=== PATIENT | male | born 1985 | race African-American/Black ===

== ENCOUNTER 2016-10-23 01:45 | Observation (INO) | payer SELFPAY ==
[~2016-10-23] VITALS: Ht 172.7 cm; Wt 71.0 kg
[~2016-10-23 01:45] MED LIST: AMOX500T PO; DICL50 PO
[2016-10-23 01:48] VITALS: BP 149/85; PULSE 66; RESP 16; TEMP 97.8; O2SAT 100
[2016-10-23 04:11] VITALS: BP 113/66; PULSE 52; RESP 17; O2SAT 96
[2016-10-23] MEDS ORDERED: SODIUM CHLORIDE 0.9% FLUSH 10 ML FLUSH IVF PRN (04:15)
[2016-10-23] MEDS ORDERED: ASPIRIN 81 MG CHEW TAB PO ONE (04:15)
--- NOTE | 2016-10-23 05:04 | RADRPT ---
EXAM DATE/TIME: 10/23/2016 04:19 [place] COMPARISON: No previous studies available for comparison. INDICATIONS : Chest pain. MEDICAL HISTORY : Pericarditis. SURGICAL HISTORY : Heart sx. ENCOUNTER: Initial ACUITY: 3 days PAIN SCORE: 5/10 LOCATION: chest FINDINGS: A single view of the chest demonstrates the lungs to be symmetrically aerated without evidence of mas s, infiltrate or effusion. The cardiomediastinal contours are unremarkable. Osseous structures are intact. CONCLUSION: Normal examination. Corbin Paez MD on October 23, 2016 at 5:03 Board Certified Radiologist. This report was verified electronically.
[2016-10-23 05:20] LABS: AUTOMATED NEUTROPHIL # 2.8 TH/MM3 (1.8-7.7); BASOPHIL % 0.3 % (0.0-2.0); EOSINOPHIL # 0.2 TH/MM3 (0-0.4); EOSINOPHIL % 3.4 % (0.0-4.0); HEMO FLAGS DIFF FINAL; LYMPH % 49.4 % (9.0-44.0); LYMPHOCYTE # 3.5 TH/MM3 (1.0-4.8); MEAN CELL VOLUME 88.7 FL (80.0-100.0); MEAN CORPUSCULAR HEMOGLOBIN 30.5 PG (27.0-34.0); MEAN CORPUSCULAR HGB CONC 34.4 % (32.0-36.0); MONO % 6.7 % (0.0-8.0); NEUT % 40.2 % (16.0-70.0); PLATELET COUNT 317 TH/MM3 (150-450); RED BLOOD COUNT 4.51 MIL/MM3 (4.50-5.90); RED CELL DISTRIBUTION WIDTH 13.6 % (11.6-17.2); WHITE BLOOD COUNT 7.1 TH/MM3 (4.0-11.0)
[2016-10-23 05:32] LABS: ALT (GPT) 18 U/L (12-78); ANION GAP 5 MEQ/L (5-15); AST (GOT) 19 U/L (15-37); BICARBONATE 27.2 MEQ/L (21.0-32.0); BLOOD UREA NITROGEN 13 MG/DL (7-18); CHLORIDE 107 MEQ/L (98-107); GLOMERULAR FILTRATION RATE 126 ML/MIN (>89); MAGNESIUM 2.1 MG/DL (1.5-2.5); POTASSIUM 3.8 MEQ/L (3.5-5.1); SODIUM (NA) 139 MEQ/L (136-145)
[2016-10-23 05:36] LABS: ALKALINE PHOSPHATASE 89 U/L (45-117); APTT (PATIENT) 27.8 SEC (24.3-30.1); CREATINE KINASE 243 U/L (39-308); INTERNATIONAL NORMALIZED RATIO 0.9 RATIO; PROTHROMBIN TIME - PATIENT 10.2 SEC (9.8-11.6); TOTAL BILIRUBIN ADULT 0.2 MG/DL (0.2-1.0)
[2016-10-23 05:49] LABS: CKMB 1.2 NG/ML (0.5-3.6)
--- NOTE | 2016-10-23 06:33 | PD ---
HPI Chief Complaint: Respiratory Symptoms Time Seen by Provider: 04:07 Travel History International Travel<30 days: No Contact w/Intl Traveler<30days: No Traveled to known affect area: No History of Present Illness HPI The patient is a 31 year old male who presents to the [facility] emergency department with a history of chest pain that he reports is been ongoing for the last 3 days. He reports that the pain is been constant and gradually getting worse with time. He reports that it is worse with taking a deep breath. He reports that it causes an aching sensation in the left shoulder and left arm. He reports that the pain is a pressure sensation in the left side of his chest. He denies any prior history of coronary artery disease, however he does report at 16 years of age he had pericarditis and had a pericardial window. He was last seen by singer songwriter 5 years ago. The patient denies having any history of hypertension, hyperlipidemia, or diabetes mellitus. He does report smoking a half pack of cigarettes daily. The patient denies any recent fevers, cough, congestion, neck pain, abdominal pain, diarrhea, urinary symptoms, or neurologic symptoms. [facility] Past Medical History Narrative Medical The patient's past medical history is significant for pericarditis with pericardial window at 16 years of age. Cardiovascular Problems: Yes (HX OF PERICARDITIS) Past Surgical History Narrative Surgical The patient has a history of pericardial window at 16 years of age. Social History Alcohol Use: Yes (1X WEEK) Tobacco Use: Yes (1/2 PPD) Substance Use: No Allergies-Medications (Allergen,Severity, Reaction): Coded Allergies: No Known Allergies (Unverified , 10/23/16) Reported Meds & Prescriptions Reported Meds & Active Scripts Active Review of Systems Except as stated in HPI: all other systems reviewed are Neg General / Constitutional: No: Fever Eyes: No: Visual changes HENT: No: Headaches Cardiovascular: Positive: Chest Pain or Discomfort, Dyspnea on exertion, No: Diaphoresis Respiratory: Positive: Shortness of Breath, No: Cough Gastrointestinal: No: Nausea, Vomiting, Abdominal Pain Genitourinary: No: Dysuria Musculoskeletal: No: Pain Skin: No Rash Neurologic: No: Weakness Psychiatric: No: Depression Endocrine: No: Polydipsia Hematologic/Lymphatic: No: Easy Bruising Physical Exam Narrative General: The patient is a well-developed well-nourished male in no acute distress. Head and Neck exam: Head is normocephalic atraumatic. Eyes: EOMI, pupils are equal round and reactive to light. Nose: Midline septum with pink mucous membranes Mouth: Dentition unremarkable. Moist mucus membranes. Posterior oropharynx is not erythematous. No tonsillar hypertrophy. Uvula midline. Airway patent. Neck: No palpable lymphadenopathy. No nuchal rigidity. No thyromegaly. Cardiovascular: Regular rate and rhythm without murmurs, gallops, or rubs. No pulse deficit to the extremities and simultaneous auscultation and palpation of his radial artery. Lungs: Clear to auscultation bilaterally. No wheezes, rhonchi, or rales. Abdomen: Soft, without tenderness to palpation in all 4 quadrants of the abdomen. No guarding, rebound, or rigidity. Normal bowel sounds are audible. No tenderness on palpation of McBurney's point. Negative Bañuelos's sign. Extremities: No clubbing, cyanosis, or edema. 2+ pulses in all 4 extremities. No calf tenderness on palpation. Back: No spinous process tenderness to palpation. The patient reports having left- sided CVA tenderness on palpation. Neurologic Exam: Grossly nonfocal. Skin Exam: No rash noted. Intact skin that is warm and dry. Data Data Last Documented VS Vital Signs Date Time Temp Pulse Resp B/P Pulse Ox O2 Delivery O2 Flow Rate FiO2 10/23/16 04:11 52 17 113/66 96 Room Air 10/23/16 01:48 97.8 Orders Electrocardiogram (10/23/16 04:15) B-Type Natriuretic Peptide (10/23/16 04:15) Ckmb (Isoenzyme) Profile (10/23/16 04:15) Complete Blood Count With Diff (10/23/16 04:15) Comprehensive Metabolic Panel (10/23/16 04:15) D-Dimer (10/23/16 04:15) Magnesium (Mg) (10/23/16 04:15) Prothrombin Time / Inr (Pt) (10/23/16 04:15) Act Partial Throm Time (Ptt) (10/23/16 04:15) Troponin I (10/23/16 04:15) Lipase (10/23/16 04:15) Chest, Single Ap (10/23/16 04:15) Ecg Monitoring (10/23/16 04:15) Bilateral Bp Monitoring (10/23/16 04:15) Iv Access Insert/Monitor (10/23/16 04:15) Oximetry (10/23/16 04:15) Oxygen Administration (10/23/16 04:15) Aspirin Chew (Aspirin Chew) (10/23/16 04:15) Sodium Chloride 0.9% Flush (Ns Flush) (10/23/16 04:15) CKMB (10/23/16 04:15) CKMB% (10/23/16 04:15) Admit Order (Ed Use Only) (10/23/16 06:25) Activity Bed Rest With Brp (10/23/16 06:25) Vital Signs (Adult) Q4H (10/23/16 06:25) Cardiac Rhythm .As Directed (10/23/16 06:25) Notify Dr: Other .PRN (10/23/16 06:25) Notify DrFlorentin Parameters (10/23/16 06:25) Resp Oxygen Nasal Cannula (10/23/16 ) Ckmb (Isoenzyme) Profile (10/23/16 07:15) Ckmb (Isoenzyme) Profile (10/23/16 10:15) Troponin I (10/23/16 07:15) Troponin I (10/23/16 10:15) Electrocardiogram (10/23/16 07:15) Electrocardiogram (10/23/16 10:15) ^ Obtain (10/23/16 06:25) Highway Technician / Telemetry GABRIEL.Q8H (10/23/16 06:25) Labs Laboratory Tests Test 10/23/16 04:15 White Blood Count 7.1 TH/MM3 Red Blood Count 4.51 MIL/MM3 Hemoglobin 13.8 GM/DL Hematocrit 40.0 % Mean Corpuscular Volume 88.7 FL Mean Corpuscular Hemoglobin 30.5 PG Mean Corpuscular Hemoglobin 34.4 % Concent Red Cell Distribution Width 13.6 % Platelet Count 317 TH/MM3 Mean Platelet Volume 7.2 FL Neutrophils (%) (Auto) 40.2 % Lymphocytes (%) (Auto) 49.4 % Monocytes (%) (Auto) 6.7 % Eosinophils (%) (Auto) 3.4 % Basophils (%) (Auto) 0.3 % Neutrophils # (Auto) 2.8 TH/MM3 Lymphocytes # (Auto) 3.5 TH/MM3 Monocytes # (Auto) 0.5 TH/MM3 Eosinophils # (Auto) 0.2 TH/MM3 Basophils # (Auto) 0.0 TH/MM3 CBC Comment DIFF FINAL Differential Comment Prothrombin Time 10.2 SEC Prothromb Time International 0.9 RATIO Ratio Activated Partial 27.8 SEC Thromboplast Time D-Dimer Quantitative (PE/DVT) 0.21 MG/L FEU Sodium Level 139 MEQ/L Potassium Level 3.8 MEQ/L Chloride Level 107 MEQ/L Carbon Dioxide Level 27.2 MEQ/L Anion Gap 5 MEQ/L Blood Urea Nitrogen 13 MG/DL Creatinine 0.86 MG/DL Estimat Glomerular Filtration 126 ML/MIN Rate Random Glucose 83 MG/DL Calcium Level 8.6 MG/DL Magnesium Level 2.1 MG/DL Total Bilirubin 0.2 MG/DL Aspartate Amino Transf 19 U/L (AST/SGOT) Alanine Aminotransferase 18 U/L (ALT/SGPT) Alkaline Phosphatase 89 U/L Total Creatine Kinase 243 U/L Creatine Kinase MB 1.2 NG/ML Troponin I LESS THAN 0.02 NG/ML B-Type Natriuretic Peptide 16 PG/ML Total Protein 7.2 GM/DL Albumin 3.6 GM/DL Lipase 148 U/L MDM Medical Decision Making Medical Screen Exam Complete: Yes Emergency Medical Condition: Yes Medical Record Reviewed: Yes Differential Diagnosis Pericarditis, versus acute coronary syndrome, versus acid reflux, versus pneumothorax, versus pulmonary embolism, versus pneumonia Narrative Course During the course of the patients emergency department visit, the patients history, examination, and differential diagnosis were reviewed with the patient. The patient had IV access obtained and blood work sent for analysis. The patient was placed on a athletic monitor with oximetry and blood pressure monitoring. An EKG was done on arrival. The patient's EKG shows a sinus bradycardia, heart rate of 46, early repolarization pattern is noted, no acute ST segment elevation, T waves are inverted in V1, no acute ST segment depression. The patient was initially provided aspirin 162 mg by mouth 1. The patients laboratory studies were reviewed and remarkable for a CBC that shows a white count 7.1, hemoglobin 13.8, platelets 317 with 49.4 lymphocytes, CMP is unremarkable, initial set of cardiac enzymes are negative, BNP is 16, lipase 148, PT PTT unremarkable, d-dimer is 0.21 decreased and the likelihood of pulmonary embolism in this patient with no other significant risk factors. Radiology studies were reviewed and remarkable for a chest x-ray that shows no acute abnormality. The patient will be admitted to the chest pain center for rule out serial cardiac enzyme protocol and consideration of stress testing to follow. The patients results were discussed with the patient, including the plan of care. I explained that further testing and/ or monitoring is indicated based on the patients history, examination, and/ or laboratory findings. Therefore, I recommended admission for additional evaluation. The patient expressed understanding and was agreeable with this plan. The patient was admitted to the hospital in stable condition and sent to a bed under the care of the chest pain center. Diagnosis Primary Impression: Chest pain, rule out acute myocardial infarction Admitting Information Admitting Physician Requests: Melisa Ramos MD Oct 23, 2016 06:33
[2016-10-23 07:22] VITALS: O2SAT 96
[2016-10-23 08:07] VITALS: BP 111/79; PULSE 48; RESP 16; O2SAT 100
[2016-10-23 08:51] LABS: CREATINE KINASE 205 U/L (39-308)
[2016-10-23 09:05] LABS: CKMB 1.3 NG/ML (0.5-3.6)
[2016-10-23 09:13] VITALS: BP 130/75; PULSE 47; RESP 20; TEMP 97.9; O2SAT 98
--- NOTE | 2016-10-23 09:19 | HHI.HP ---
HPI Primary Care Physician No Primary Care Physician Chief Complaint Chest pain History of Present Illness This is a 31-year-old male with history of pericarditis at age 16 meeting a pericardial window that presents complaining of 3 days of constant chest aching. If the center/left side of his chest. Lying back seems worsen the symptoms and sitting upward seems to help symptoms. He's had no cough. Denies any recent illnesses. No fevers or chills. He also states that when he lays back and left arm will go numb as the discomfort worsens. Denies weakness in extremities. He states she's had no other episodes of epicarditis since having the pericardial window at age 16. Review of Systems General: Patient denies fevers, chills recent, and recent travel HEENT: Patient denies headache, sore throat, difficulty swallowing. Cardiovascular: Has the chest discomfort as mentioned above. Denies sensation of heart beating rapidly or irregularly. No syncope. Denies diaphoresis. Respiratory: Denies shortness of breath or inspirational chest discomfort. Denies coughing wheezing or hemoptysis. GI: Patient denies nausea, vomiting, diarrhea, abdominal pain, bloody stools. Musculoskeletal: Patient denies joint pain or edema. Denies calf pain or edema. Neurovascular: Patient denies numbness, tingling, weakness in extremities. Denies headache. Endocrine: Denies polyuria and polydipsia. Hematologic: Denies easy bruising. Skin: Denies rash or itching. Past Family Social History Allergies: Coded Allergies: No Known Allergies (Unverified , 10/23/16) Past Medical History History of pericarditis age 16 and needing a pericardial window at that time. Tobacco abuse. Denies hypertension, hyperlipidemia, diabetes, and known coronary artery disease. Past Surgical History Pericardial window at age 16 secondary to pericarditis. Reported Medications Reported Meds & Active Scripts Active Active Ordered Medications Current Medications Medications (Trade) Dose Ordered Sig/Kelly Route Start Time Stop Time Status Last Admin (NS Flush) 2 ml UNSCH PRN IVF 10/23/16 04:15 (Motrin) 800 mg NOW ONCE PO 10/23/16 09:00 10/23/16 09:01 UNV Family History Denies family history of CAD. Social History Patient smokes about one half pack of cigarettes daily. Denies alcohol or illicit drugs. Physical Exam Vital Signs Vital Signs Date Time Temp Pulse Resp B/P Pulse Ox O2 Delivery O2 Flow Rate FiO2 10/23/16 08:07 100 Room Air 10/23/16 08:07 48 16 111/79 100 Room Air 10/23/16 07:22 96 21 10/23/16 04:11 52 17 113/66 96 Room Air 10/23/16 01:48 97.8 66 16 149/85 100 Room Air Physical Exam GENERAL: This is a well-nourished, well-developed patient, in no apparent distress. Patient speaks in clear complete sentences. Patient is pleasant. HEENT: Head is atraumatic and normocephalic. Neck is supple without lymphadenopathy and trachea is midline. No JVD or carotid bruits. CARDIOVASCULAR: Regular rate and rhythm without murmurs, gallops, or rubs. RESPIRATORY: Clear to auscultation. Breath sounds equal bilaterally. No wheezes , rales, or rhonchi. Chest wall is tender. No use of accessory muscles. GASTROINTESTINAL: Abdomen is nontender, nondistended. Abdomen soft. No obvious pulsatile mass or bruit. No CVA tenderness. Strong femoral pulses bilaterally. Normal bowel sounds in all quadrants. MUSCULOSKELETAL: Patient is moving upper and lower extremities freely. No calf tenderness or edema, no Homans sign. Strong pulses in upper and lower extremities. NEUROLOGICAL: Patient is alert and oriented. Cranial nerves 2-12 are grossly intact. No focal deficits and speech is clear. SKIN: No rash and turgor is normal. Laboratory Laboratory Tests Test 10/23/16 10/23/16 04:15 08:00 White Blood Count 7.1 Red Blood Count 4.51 Hemoglobin 13.8 Hematocrit 40.0 Mean Corpuscular Volume 88.7 Mean Corpuscular Hemoglobin 30.5 Mean Corpuscular Hemoglobin 34.4 Concent Red Cell Distribution Width 13.6 Platelet Count 317 Mean Platelet Volume 7.2 Neutrophils (%) (Auto) 40.2 Lymphocytes (%) (Auto) 49.4 Monocytes (%) (Auto) 6.7 Eosinophils (%) (Auto) 3.4 Basophils (%) (Auto) 0.3 Neutrophils # (Auto) 2.8 Lymphocytes # (Auto) 3.5 Monocytes # (Auto) 0.5 Eosinophils # (Auto) 0.2 Basophils # (Auto) 0.0 CBC Comment DIFF FINAL Differential Comment Prothrombin Time 10.2 Prothromb Time International 0.9 Ratio Activated Partial 27.8 Thromboplast Time D-Dimer Quantitative (PE/DVT) 0.21 Sodium Level 139 Potassium Level 3.8 Chloride Level 107 Carbon Dioxide Level 27.2 Anion Gap 5 Blood Urea Nitrogen 13 Creatinine 0.86 Estimat Glomerular Filtration 126 Rate Random Glucose 83 Calcium Level 8.6 Magnesium Level 2.1 Total Bilirubin 0.2 Aspartate Amino Transf 19 (AST/SGOT) Alanine Aminotransferase 18 (ALT/SGPT) Alkaline Phosphatase 89 Total Creatine Kinase 243 205 Creatine Kinase MB 1.2 1.3 Troponin I LESS THAN 0.02 0.02 B-Type Natriuretic Peptide 16 Total Protein 7.2 Albumin 3.6 Lipase 148 Result Diagram: 10/23/1641410/23/16414 Imaging Last 48 hours Impressions Chest X-Ray 10/23/16414 Signed Impressions: Service Date/Time: Sunday, October 23, 2016 04:19 - CONCLUSION: Normal examination. Corbin Paez MD Course Initial EKG is sinus rhythm with pattern of early repolarization. Assessment and Plan Assessment and Plan * Chest pain, patient will continue to have serial cardiac enzymes and EKGs for ruling out purposes. He has been seen by Dr. Jose Ann of cardiology in the chest pain center and his symptoms appear to be related to pericarditis. We will get a 2-D echo, ESR, and will give ibuprofen 800 mg by mouth 1. Pending on the results of echo patient likely be discharged home with instructions to follow local physician and to continue anti-inflammatories for pericarditis. * Tobacco abuse: Patient has been counseled on the importance of smoking cessation. Patient is stable at this time. He is agreeable to this plan. Vincent Duque Oct 23, 2016 09:19
[2016-10-23] MEDS ORDERED: IBUPROFEN 800 MG TAB PO ONE (10:00)
--- NOTE | 2016-10-23 10:17 | HHI.DCPOC ---
Discharge Care Plan Diagnosis: (1) Chest pain, atypical (2) Tobacco abuse Goals to Promote Your Health * To prevent worsening of your condition and complications * To maintain your health at the optimal level Directions to Meet Your Goals Take your medications as prescribed Follow your dietary instruction Follow activity as directed Keep your appointments as scheduled Take your immunizations and boosters as scheduled If your symptoms worsen call your PCP, if no PCP go to Urgent Care Center or Emergency Room Smoking is Dangerous to Your Health. Avoid second hand smoke Call the 24-hour hour crisis hotline for domestic abuse at Vincent Duque Oct 23, 2016 10:17
--- NOTE | 2016-10-23 11:25 | EKG ---
Date Performed: 10/23/2016 Time Performed: 05:03:00 PTAGE: 31 years EKG: SINUS BRADYCARDIA EARLY REPOLARIZATION BORDERLINE ECG NO PREVIOUS TRACING DOCTOR: Igor Luna Interpretating Date/Time 10/23/2016 11:24:39
--- NOTE | 2016-10-23 19:03 | EC ---
Study Study Date:10/23/2016 STUDY CONCLUSIONS SUMMARY - Left ventricle: The cavity size was normal. Systolic function was normal. The estimated ejection fraction was in the range of 55% to 60%. Wall motion was normal; there were no regional wall motion abnormalities. The study is not technically sufficient to allow evaluation of LV diastolic function. - Pulmonary arteries: PA peak pressure: 35mm Hg (S). If LV function is below 40, please consider prescribing an ACEI or ARB or document rationale for non-use. PROCEDURE DATA STUDY STATUS: Elective. Procedure: Transthoracic echocardiography. Image quality was good. Scanning was performed from the parasternal, apical, and subcostal acoustic windows. Study completion: The patient tolerated the procedure well. Transthoracic echocardiography. M-mode, complete 2D, complete spectral Doppler, and color Doppler. Patient status: Inpatient. CARDIAC ANATOMY LEFT VENTRICLE: The cavity size was normal. Systolic function was normal. The estimated ejection fraction was in the range of 55% to 60%. Wall motion was normal; there were no regional wall motion abnormalities. The study is not technically sufficient to allow evaluation of LV diastolic function. AORTIC VALVE: The valve appears to be grossly normal. Trileaflet. Doppler: There was no stenosis. No significant regurgitation. MITRAL VALVE: The valve appears to be grossly normal. Doppler: There was no evidence for stenosis. Trace to mild regurgitation. LEFT ATRIUM: The atrium was normal in size. RIGHT VENTRICLE: Measured as mildly dilated, but off-axis and visually does not appear enlarged. PULMONIC VALVE: Not well visualized. Doppler: There was no evidence for stenosis. No significant regurgitation. TRICUSPID VALVE: The valve appears to be grossly normal. Doppler: There was no evidence for stenosis. Trace regurgitation. PERICARDIUM: There was no pericardial effusion. BASIC MEASUREMENTS ADULT NORMAL Left ventricle LV internal dimension, ED, chordal level, 50.5 mm 43-52 PLAX LV internal dimension, ES, chordal level, *39 mm 23-38 PLAX Fractional shortening, chordal level, PLAX *23 % >29 LV posterior wall thickness, ED 11.2 mm IVS/LVPW ratio, ED 0.69 <1.3 Ventricular septum Septal thickness, ED 7.73 mm Aortic valve Leaflet separation 25 mm 15-26 Right ventricle RV internal dimension, ED, PLAX 29.2 mm 19-38 BASIC MEASUREMENTS ADULT NORMAL Aortic valve Leaflet separation 25 mm 15-26 Aorta Root diameter, ED *38 mm 20-37 Left atrium Anterior-posterior dimension, ES 30 mm 19-40 LA/aortic root ratio 0.79 DOPPLER MEASUREMENTS ADULT NORMAL Main pulmonary artery Pressure, S *35 mm Hg =30 Tricuspid valve Regurgitant peak velocity 250 cm/s Peak RV-RA gradient, S 25 mm Hg Maximal regurgitant velocity 250 cm/s Systemic veins Estimated CVP 10 mm Hg Right ventricle RV pressure, S *35 mm Hg <30 LEGEND: Mean values are shown as u=mean value. Asterisk (*) puga values outside specified normal range. Prepared and signed by Sathya Ding [id number]
--- NOTE | 2016-10-24 17:33 | EKG ---
Date Performed: 10/23/2016 Time Performed: 08:01:03 PTAGE: 31 years EKG: SINUS BRADYCARDIA EARLY REPOLARIZATION BORDERLINE ECG Since PREVIOUS TRACING , no significant change noted PREVIOUS TRACIN10/23/2016 05.03 DOCTOR: Tanisha Pinto Interpretating Date/Time 10/24/2016 17:33:05
== END 2016-10-23 10:47 | disposition home or self-care (01) ==
LOC: NEPE 01:45 → NEDA 06:29 → NEPFCDU 09:30
DX: R07.9 Chest pain, unspecified (principal); F17.210 Nicotine dependence, cigarettes, uncomplicated
CPT/HCPCS: 71010; 80053; 82550; 82552; 83690; 83735; 83880; 84484; 85025; 85379; 85610; 85652; 85730; 93005; 93306; 99285; G0378

== ENCOUNTER 2017-02-09 23:27 | Emergency (ER) | payer SELFPAY ==
[~2017-02-09] VITALS: Ht 170.2 cm; Wt 70.5 kg
[2017-02-09 23:30] VITALS: BP 121/78; PULSE 78; RESP 12; TEMP 98.8; O2SAT 97
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
[2017-02-10] MEDS ORDERED: IBUPROFEN 600 MG TAB PO ONE (00:15)
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
[2017-02-10] MEDS ORDERED: ACETAMINOPHEN/HYDROcodone 325 MG/5 MG TAB PO ONE (01:00)
== END 2017-02-10 01:26 | disposition home or self-care (01) ==
LOC: NEPD 23:27
DX: S92.414A Nondisplaced fracture of proximal phalanx of right great toe, initial encounter for closed fracture (principal); X58.XXXA Exposure to other specified factors, initial encounter
CPT/HCPCS: 73660; 99283; E0113; L3260